=== PATIENT | female | born 1965 | race Caucasian/White ===

== ENCOUNTER 2017-05-14 12:21 | Inpatient (IN) | payer OTHER ==
[~2017-05-14] VITALS: Ht 160 cm; Wt 129.9 kg
[~2017-05-14 12:21] MED LIST: ASPIRIN325 MG PO; BETHANECHOL CHL25 MG PO; CHERATUSSIN AC473 ML PO; DIVALPROEX SOD500 M1 PO; FUROSEMIDE40 MG PO; HYDROCODON-ACE1 EAC7 PO; LEVETIRACETAM500 MG PO; LISINOPRIL10 MG PO; METOPROLOL TART25 MG PO; MICRO-K10 ME2 PO; PREDNISONE10 M1 PO; TESSALON200 MG PO; ZITHROMAX Z-PA250 MG PO
[2017-05-14 14:14] LABS: ADD MIUA? YES; BILIRUBIN NEGATIVE; BLOOD SMALL; COLOR YELLOW ((YELLOW)); GLUCOSE (STRIP) NEGATIVE; KETONES NEGATIVE; LEUKOCYTES MODERATE; NITRITE POSITIVE; PROTEIN (STRIP) NEGATIVE; SPECIFIC GRAVITY 1.026 (1.000-1.030); UROBILINOGEN 0.2 MG/DL (0.2-1.0)
[2017-05-14 14:20] LABS: EOSINOPHIL (%) 2.2 % (0-5); EOSINOPHIL COUNT 0.2 K/uL (0-0.3); HEMATOCRIT 36.9 % (36.0-46.0); IMMATURE GRANULOCYTE (%) 0.4 % (0.0-0.7); INSTRUMENT ABS NEUTROPHIL CT 5.4 K/uL; MCH 27.9 PG (29.0-34.0); MCHC 33.1 G/DL (30.0-36.0); MCV 84.2 FL (83-99); MEAN PLAT.VOLUME 10.1 uM^3 (9.5-12.4); MONOCYTE (%) 6.2 % (3-12); MONOCYTE COUNT 0.5 K/uL (0-0.8); NEUTROPHIL (%) 66.4 % (45-76); NEUTROPHIL COUNT 5.4 K/uL (1.8-6.4); PLATELET COUNT 217 K/uL (156-360); RBC DIS.WIDTH-CV 13.6 % (11.8-14.6); RBC DIS.WIDTH-SD 41.9 % (39-53); RED BLOOD COUNT 4.38 M/uL (3.80-5.20); WHITE BLOOD COUNT 8.1 K/uL (4.1-10.2)
[2017-05-14 14:23] LABS: BACTERIA 3+ /HPF; EPITHELIAL CELLS 2+ /HPF; GRANULAR CASTS 0-5 /LPF; HYALINE CASTS 0-5 /LPF; MUCUS TRACE /LPF; UCUL ADDED? YES; WHITE BLOOD CELLS 30-40 /HPF (0-5)
[2017-05-14 14:28] LABS: AMPHETAMINE NEGATIVE (500 ng/mL); BARBITURATES NEGATIVE (200 ng/mL); BENZODIAZEPINES NEGATIVE (150 ng/mL); COCAINE NEGATIVE (150 ng/mL); INTERNAL CONTROLS VALID? YES; METHADONE NEGATIVE (200 ng/mL); METHAMPHETAMINE NEGATIVE (500 ng/mL); OPIATES (MORPHINE) NEGATIVE (100 ng/mL); OXYCODONE NEGATIVE (100 ng/mL); PHENCYCLIDINE NEGATIVE (25 ng/mL); PROPOXYPHENE NEGATIVE (300 ng/mL); THC CANNABINOIDS NEGATIVE (50 ng/mL); TRICYCLIC ANTIDEPRESSANTS NEGATIVE (300 ng/mL)
[2017-05-14 15:19] LABS: ANION GAP 10 MEQ/L (2-14); CHLORIDE 104 MEQ/L (99-109); GFR ESTIMATE (CALCULATED) > 59 mL/min/; GLUCOSE 134 mg/dL (70-99); POTASSIUM 4.1 MEQ/L (3.7-5.4); SAMPLE HEMOLYSIS CHECK 0; SAMPLE ICTERIC CHECK 0; SAMPLE LIPEMIA CHECK 0; SERUM ETHYL ALCOHOL < 10 mg/dL; SODIUM 139 MEQ/L (136-147); UREA NITROGEN (BUN) 21 mg/dL (9-23)
[2017-05-14 17:36] VITALS: BP 131/70
[2017-05-14 17:43] VITALS: BP 131/70
[2017-05-15 07:59] VITALS: BP 125/71
[2017-05-15 14:56] VITALS: BP 110/56
[2017-05-16 07:17] VITALS: BP 133/68
[2017-05-16 15:32] VITALS: BP 114/72
[2017-05-17 07:52] VITALS: BP 118/57
[2017-05-17 15:58] VITALS: BP 112/59
[2017-05-18 07:48] VITALS: BP 119/57
[2017-05-18] MEDS ORDERED: BACTRIM,SEPT1 TABLET PO (10:58)
== END 2017-05-18 12:11 | disposition home or self-care (01) | DRG 883 ==
LOC: EME 12:21 → 1WEST 15:59 → EDOF 15:59 → ENRESERV 16:40 → 1WEST 17:28
PROVIDERS: Emergency Medicine
DX: F63.81 Intermittent explosive disorder (principal); R45.851 Suicidal ideations; N39.0 Urinary tract infection, site not specified; E11.9 Type 2 diabetes mellitus without complications; F41.9 Anxiety disorder, unspecified; I10 Essential (primary) hypertension; R41.9 Unspecified symptoms and signs involving cognitive functions and awareness; R45.1 Restlessness and agitation; R04.0 Epistaxis; F39 Unspecified mood [affective] disorder; G40.909 Epilepsy, unspecified, not intractable, without status epilepticus; Z86.73 Personal history of transient ischemic attack (TIA), and cerebral infarction without residual deficits; R45.87 Impulsiveness; F32.9 Major depressive disorder, single episode, unspecified; G43.909 Migraine, unspecified, not intractable, without status migrainosus; J02.9 Acute pharyngitis, unspecified; R05 Cough; F25.9 Schizoaffective disorder, unspecified
CPT/HCPCS: 80048; 81003; 85025; 87077; 87086; 87186; 87651 90; 90839; 97150 GO; 99281; 99284; G0480